=== PATIENT | female | born 1935 | race Caucasian/White ===

== ENCOUNTER 2019-05-15 07:26 | Inpatient (IN) ==
--- NOTE | 2019-04-13 19:45 | PAT Medication Instructions ---
Medication Instructions Date of Service April 13, 2019 Home Medications acetaminophen [Tylenol Extra Strength] 1,000 mg PO Q6H PRN lorazepam 0.5 mg PO UD PRN metoprolol tartrate 25 mg PO QAM mirtazapine 15 mg PO HS pantoprazole 40 mg PO QAM tramadol 50 mg PO UD PRN Take morning of surgery With a small sip of water, OTHERWISE NOTHING TO EAT OR DRINK AFTER MIDNIGHT: acetaminophen [Tylenol Extra Strength] 1,000 mg PO Q6H PRN (okay to take up to 4 hours prior to surgery if needed) lorazepam 0.5 mg PO UD PRN (if needed) metoprolol tartrate 25 mg PO QAM pantoprazole 40 mg PO QAM tramadol 50 mg PO UD PRN (okay to take up to 4 hours prior to surgery if needed) Take evening before surgery acetaminophen [Tylenol Extra Strength] 1,000 mg PO Q6H PRN (if needed) lorazepam 0.5 mg PO UD PRN (if needed) mirtazapine 15 mg PO HS tramadol 50 mg PO UD PRN (if needed) Other Notes If you have any questions please call us at [phone] or [phone] or [phone] or [phone]
--- NOTE | 2019-04-14 13:57 | Anesthesiology Consultation ---
Date of Service April 14, 2019 Assessment & Plan (1) Encounter for pre-operative examination: Chart Review Chart Review: Pending: Refer to Additional Notes / Consult section (pending preop testing (labs, EKG, CXR)) and Patient seen in Pre Admission Testing Teaching & Discussion Pre-Anesthesia Teaching/Discussion Notes: Instructed NPO after midnight before surgery,except medications with 15 cc of water. Medication instructions provide d according to the PAT guidelines. History Surgery Operation Date: 05/15/19 10:05 Proposed Procedures p Right Total Knee Arthroplasty - Feliciano Pascual MD Height/Weight Height: 5 ft 6 in Weight: 55.6 kg Allergies Allergy/AdvReac Type Severity Reaction Status Date / Time blue dye Allergy Unknown SKIN BURN Verified 04/07/19 11:26 duloxetine Allergy Unknown SKIN BURN Verified 04/07/19 11:26 escitalopram Allergy Unknown SKIN BURN Verified 04/07/19 11:26 omeprazole Allergy Unknown SKIN JORDAN Verified 04/07/19 11:26 citalopram AdvReac Unknown Headache Verified 04/07/19 11:26 Penicillins AdvReac Unknown DRY MOUTH Verified 04/07/19 11:26 tramadol AdvReac Unknown HEADACHE Verified 04/07/19 11:26 LYCAMADOL Allergy Unknown SKIN JORDAN Uncoded 04/07/19 11:26 Medications Home Medications Medication Instructions Recorded Confirmed Last Taken acetaminophen [Tylenol Extra 1,000 mg PO Q6H PRN 04/07/19 04/07/19 Unknown Strength] lorazepam 0.5 mg PO UD PRN 04/07/19 04/07/19 Unknown metoprolol tartrate 25 mg PO QAM 04/07/19 04/07/19 Unknown mirtazapine 15 mg PO HS 04/07/19 04/07/19 Unknown pantoprazole 40 mg PO QAM 04/07/19 04/07/19 Unknown tramadol 50 mg PO UD PRN 04/07/19 04/07/19 Unknown polyethylene glycol 3350 1 dose PO BID 04/14/19 04/14/19 Unknown Past Medical History Medical History Anxiety and depression Arthritis History of cancer colon s/p partial colon resection; no chemo/XRT Hypertension Restless leg syndrome Exercise / Class Metabolic Activity II 4-5 Yardwork/Stairs/Walk up hill Past Family History Family History Mother Family history of diabetes mellitus Sister Family history of colon cancer Family history of diabetes mellitus Brother Family history of diabetes mellitus Brother Family history of diabetes mellitus Other Patient's mother is Patient's sister is Past Surgical History Surgical History History of cardiac cath SEVERAL YEARS AGO= NO STENTS History of colonoscopy History of hysterectomy History of intestinal surgery partial bowel resection (2/2 cancer) Past Anesthesia History No Hx of Anesthesia Complications and No Family Hx of Anesthesia Complications History of PONV No Hx of PONV and No Hx of Motion Sickness Social History Smoking Status: Former smoker Do You Dip or Chew Tobacco: No Smoking End Date: QUIT 11+ YEARS AGO Hx Alcohol Use: No Hx Substance Use: No substance use type: does not use Review of Systems Occasional palpitations. Patient denies chest pain, shortness of breath, dyspnea on exertion, reflux, cough, wheezing. Physical Exam Vital Signs VITALS BP 144/70 P 66 TEMP 98.1 SP02 95%RA RESP 18 PHYSICAL Full neck and c-spine range of motion. Full TMJ range of motion. TMD 3.5 finger breaths Mallampati Score 2 Dentition: full dentures upper/lower; edentulous Lungs: clear throughout to auscultation Cardiac: regular rate and rhythm, no murmurs noted Spine: normal Carotid arteries: negative bruit Extremities: no edema
--- NOTE | 2019-04-14 14:58 | XRay Report ---
XR chest Pre-admission PA/Lat HISTORY: 83 years-old Female PAT preoperative exam. No acute chest complaints COMPARISON: Chest radiograph 05/09/2016 TECHNIQUE: PA and lateral views of the chest FINDINGS: Cardiomediastinal and hilar silhouettes are within normal limits. Mild biapical pleural-parenchymal s carring appears unchanged. Hyperinflation with suggested emphysema. Mild chronic interstitial coarsen ing. Chronic blunting of the costophrenic angles. No pneumothorax, definite pleural effusion or overt pulmonary edema. Previously described hazy right upper lung and left lung opacities are not apprecia abdulaziz on today's study. Degenerative changes of the shoulders and spine. Convex right curvature of the lower thoracic spine. IMPRESSION: No acute process. The above report was generated using voice recognition software. It may contain grammatical, syntax o r spelling errors. Electronically signed by: Alex Bullock M.D. 04/14/2019 2:56 PM
[2019-04-14 15:12] LABS: Appearance Urine Clear (Clear); Bilirubin Urine Negative (Negative); Blood Urine Negative (Negative); Color Urine Yellow; Estimated Average Glucose 111 mg/dl; Glucose Urine UA Negative (Negative); Hemoglobin A1C 5.5 % (4.5-5.6); Ketones Urine Negative (Negative); Leukocyte Esterase Urine Negative (Negative); Nitrite Urine Negative (Negative); Protein Urine Negative (Negative); Specific Gravity Urine 1.023 (1.000-1.030); Urobilinogen Urine Negative (Negative)
[2019-04-14 15:14] LABS: Basophils # (auto) 0.02 K/uL (0-0.2); Basophils % (auto) 0.5 %; Eosinophils # (auto) 0.12 K/uL (0-0.5); Eosinophils % (auto) 3.2 %; Hematocrit (blood only) 37.2 % (37-47); Immature Granulocytes # (auto) 0.01 K/uL (0.00-0.02); Immature Granulocytes % (auto) 0.3 %; Lymphocytes % (auto) 32.1 %; Mean Corpuscular Hemoglobin 28.9 pg (25-34); Mean Corpuscular Hgb Conc 32.3 g/dL (32-36); Mean Corpuscular Volume 89.6 fL (80-100); Mean Platelet Volume 11.4 fL (7.4-10.4); Monocytes # (auto) 0.27 K/uL (0.11-0.59); Monocytes % (auto) 7.2 %; Neutrophils # (auto) 2.12 K/uL (1.4-6.5); Neutrophils % (auto) 56.7 %; Platelet Count 130 K/uL (130-400); RDW Coefficient of Variation 14.4 % (11.5-14.5); RDW Standard Deviation 47.8 fL (36.4-46.3); Red Blood Count 4.15 M/uL (4.2-5.4); White Blood Count 3.74 K/uL (4.8-10.8)
[2019-04-14 15:17] LABS: Partial Thromboplastin Time 25.8 Seconds (21.0-31.0); Prothrombin Time 10.2 Seconds (9.0-12.0)
[2019-04-14 15:57] LABS: Giant Platelets 1+
[2019-04-14 16:09] LABS: Albumin Level 3.2 gm/dl (3.4-5.0); BUN Creatinine Ratio 29.4 (10-20); Calcium 8.4 mg/dl (8.5-10.1); Creatinine Clr Calc Pharmacy 65.6 ml/min; Est GFR (African American) 99.6; Potassium 3.6 mmol/L (3.5-5.1)
--- NOTE | 2019-05-02 12:45 | History & Physical Report ---
Date of Service May 02, 2019 Assessment & Plan (1) Primary osteoarthritis of right knee: Patient has failed conservative measures as above. She has significant degenerative changes of her knee. Treatment options were discussed. Risks, benefits and alternatives to surgery including but not limited to infection, DVT, pain, stiffness, need for revision surgery, damage to blood vessels, damage to nerves, PE, , were discussed with the patient and they wish to proceed. Plan will be for right total knee arthroplasty. Will plan on utilizing stems due to her poor bone quality on x-ray. Will plan on aspirin 81mg BID x 30 days post operatively for DVT prophylaxis, she plans on inpatient rehab for a period post discharge from hospital. All questions answered. Surgery scheduled for 05/15/19 at [facility]. She will follow up post operatively. History of Present Illness Chief Complaint: Right knee pain Primary Care Provider: Vero Hayes MD 83 year old female with PMHx significant for HTN, history of colon Ca, anxiety/depression, and RLS who presents with ongoing right knee pain. She has tried and failed multiple conservative therapies including cortisone and visco injections, NSAIDs, therapy with little to no relief of her symptoms. Her pain is affecting her daily activities. She would like to proceed with right knee replacement. Patient denies headaches, sweats, fevers, chills, double vision, blurred vision, cough, sore throat, dysphagia, chest pain, sob, wheezing, n/v/d/c, numbness, tingling, fatigue, urinary symptoms, mood disorders. ROS positive for Right knee pain and stiffness. Allergies Allergy/AdvReac Type Severity Reaction Status Date / Time blue dye Allergy Unknown SKIN BURN Verified 04/07/19 11:26 duloxetine Allergy Unknown SKIN BURN Verified 04/07/19 11:26 escitalopram Allergy Unknown SKIN BURN Verified 04/07/19 11:26 omeprazole Allergy Unknown SKIN JORDAN Verified 04/07/19 11:26 citalopram AdvReac Unknown Headache Verified 04/07/19 11:26 Penicillins AdvReac Unknown DRY MOUTH Verified 04/07/19 11:26 tramadol AdvReac Unknown HEADACHE Verified 04/07/19 11:26 LYCAMADOL Allergy Unknown SKIN JORDAN Uncoded 04/07/19 11:26 Home Medications Home Medications Medication Instructions Recorded Confirmed Type acetaminophen [Tylenol Extra 1,000 mg PO Q6H PRN 04/07/19 04/07/19 History Strength] lorazepam 0.5 mg PO UD PRN 04/07/19 04/07/19 History metoprolol tartrate 25 mg PO QAM 04/07/19 04/07/19 History mirtazapine 15 mg PO HS 04/07/19 04/07/19 History pantoprazole 40 mg PO QAM 04/07/19 04/07/19 History tramadol 50 mg PO UD PRN 04/07/19 04/07/19 History polyethylene glycol 3350 1 dose PO BID 04/14/19 04/14/19 History Past Med/Surg History Medical History Anxiety and depression Arthritis History of cancer colon s/p partial colon resection; no chemo/XRT Hypertension Restless leg syndrome Surgical History History of cardiac cath SEVERAL YEARS AGO= NO STENTS History of colonoscopy History of hysterectomy History of intestinal surgery partial bowel resection (2/2 cancer) Family History Mother Family history of diabetes mellitus Sister Family history of colon cancer Family history of diabetes mellitus Brother Family history of diabetes mellitus Brother Family history of diabetes mellitus Other Patient's mother is Patient's sister is Social History Preferred Language: Venezuelan Communication Ability: Effective Burial Needs Salesperson Required: No Beliefs That Will Affect Care: None Current Living Situation: Other Current Living Situation Comment: SON Other Information That Helps Us Care for You: No Feels Safe at Home: Yes Smoking Status: Former smoker Do You Dip or Chew Tobacco: No ; Smoking End Date: QUIT 11+ YEARS AGO ; Hx Alcohol Use: No Hx Substance Use: No Review of Systems All systems reviewed & are unremarkable except as noted in HPI & below Physical Exam Constitutional: well developed and well nourished; no acute distress Eyes: PERRL, conjunctivae normal, anicteric sclerae ENMT: external ear and nose normal, oropharynx normal Neck: trachea midline, no thyromegaly Respiratory: normal respiratory effort, lungs clear to auscultation Cardiovascular: RRR, no murmur, no edema Musculoskeletal: Right knee-Mild to moderate effusion, diffuse tenderness. ROM 10-110 with severe crepitation, positive Kaylie's stable to valgus and varus stress test Skin: no rashes, warm and dry Neurologic: patellar DTR's 2+ bilat, sensation intact Psychiatric: A+Ox3, euthymic affect Results & Data Laboratory Results Lab Results 04/14/19 04/14/19 04/14/19 Range/Units 14:24 14:24 14:24 WBC 3.74 L (4.8-10.8) K/uL RBC 4.15 L (4.2-5.4) M/uL Hgb 12.0 (12.0-16.0) g/dL Hct 37.2 (37-47) % MCV 89.6 (80-100) fL MCH 28.9 (25-34) pg MCHC 32.3 (32-36) g/dL RDW Std Deviation 47.8 H (36.4-46.3) fL RDW Coeff of Wilfredo 14.4 (11.5-14.5) % Plt Count 130 (130-400) K/uL MPV 11.4 H (7.4-10.4) fL Immature Gran % (Auto) 0.3 % Neut % (Auto) 56.7 % Lymph % (Auto) 32.1 % Leake % (Auto) 7.2 % Eos % (Auto) 3.2 % Baso % (Auto) 0.5 % Immature Gran # (Auto) 0.01 (0.00-0.02) K/uL Neut # (Auto) 2.12 (1.4-6.5) K/uL Lymph # (Auto) 1.20 (1.2-3.4) K/uL Leake # (Auto) 0.27 (0.11-0.59) K/uL Eos # (Auto) 0.12 (0-0.5) K/uL Baso # (Auto) 0.02 (0-0.2) K/uL Giant Platelets 1+ PT 10.2 (9.0-12.0) Seconds INR 1.0 (0.9-1.1) APTT 25.8 (21.0-31.0) Seconds PTT Ratio 1.0 Sodium 142 (136-145) mmol/L Potassium 3.6 (3.5-5.1) mmol/L Chloride 106 (98-107) mmol/L Carbon Dioxide 28 (21-32) mmol/L Anion Gap 8.0 (3-11) BUN 17 (7-18) mg/dl Creatinine 0.59 L (0.6-1.2) mg/dl Est Cr Clr Drug Dosing 65.6 ml/min Est GFR ( Amer) 99.6 Est GFR (Non-Af Amer) 86.0 BUN/Creatinine Ratio 29.4 H (10-20) Glucose 120 H (70-99) mg/dl Estimat Average Glucose mg/dl Hemoglobin A1c (4.5-5.6) % Calcium 8.4 L (8.5-10.1) mg/dl Albumin 3.2 L (3.4-5.0) gm/dl Urine Color Urine Appearance (Clear) Urine pH (4.5-7.5) Ur Specific Benicia (1.000-1.030) Urine Protein (Negative) Urine Glucose (UA) (Negative) Urine Ketones (Negative) Urine Blood (Negative) Urine Nitrite (Negative) Urine Bilirubin (Negative) Urine Urobilinogen (Negative) Ur Leukocyte Esterase (Negative) Blood Type Antibody Screen 04/14/19 04/14/19 04/14/19 Range/Units 14:24 14:24 14:24 WBC (4.8-10.8) K/uL RBC (4.2-5.4) M/uL Hgb (12.0-16.0) g/dL Hct (37-47) % MCV (80-100) fL MCH (25-34) pg MCHC (32-36) g/dL RDW Std Deviation (36.4-46.3) fL RDW Coeff of Wilfredo (11.5-14.5) % Plt Count (130-400) K/uL MPV (7.4-10.4) fL Immature Gran % (Auto) % Neut % (Auto) % Lymph % (Auto) % Leake % (Auto) % Eos % (Auto) % Baso % (Auto) % Immature Gran # (Auto) (0.00-0.02) K/uL Neut # (Auto) (1.4-6.5) K/uL Lymph # (Auto) (1.2-3.4) K/uL Leake # (Auto) (0.11-0.59) K/uL Eos # (Auto) (0-0.5) K/uL Baso # (Auto) (0-0.2) K/uL Giant Platelets PT (9.0-12.0) Seconds INR (0.9-1.1) APTT (21.0-31.0) Seconds PTT Ratio Sodium (136-145) mmol/L Potassium (3.5-5.1) mmol/L Chloride (98-107) mmol/L Carbon Dioxide (21-32) mmol/L Anion Gap (3-11) BUN (7-18) mg/dl Creatinine (0.6-1.2) mg/dl Est Cr Clr Drug Dosing ml/min Est GFR ( Amer) Est GFR (Non-Af Amer) BUN/Creatinine Ratio (10-20) Glucose (70-99) mg/dl Estimat Average Glucose 111 mg/dl Hemoglobin A1c 5.5 (4.5-5.6) % Calcium (8.5-10.1) mg/dl Albumin (3.4-5.0) gm/dl Urine Color Yellow Urine Appearance Clear (Clear) Urine pH 5.0 (4.5-7.5) Ur Specific Benicia 1.023 (1.000-1.030) Urine Protein Negative (Negative) Urine Glucose (UA) Negative (Negative) Urine Ketones Negative (Negative) Urine Blood Negative (Negative) Urine Nitrite Negative (Negative) Urine Bilirubin Negative (Negative) Urine Urobilinogen Negative (Negative) Ur Leukocyte Esterase Negative (Negative) Blood Type O Positive Antibody Screen NEGATIVE Diagnostic Findings Right knee radiographs: Osteopenia. Mild degenerative changes medial and lateral compartment with osteophyte formation. She is rbng-my-toeo patellofemoral joint with spurring.
[~2019-05-15 07:26] MED LIST: ACETAMINOPHEN 500 MG TAB PO SCH; BUPIVACAINE 0.5 % 5 MG/1 ML PF 10ML VIAL ONE; CEFAZOLIN 1000MG 1,000 MG/7.5 ML SYR IV SCH; CeleBREX 200 MG CAP PO SCH; GABAPENTIN 300 MG CAP PO SCH; LR 500ML BOLUS, THEN 15ML/HR IV SCH; ROPIVACAINE 0.5% HCL/PF 150 MG, BUPIVACAINE 0.5% MPF 30 ML, EPINEPHrine 30MG/30ML (OR U... INFIL SCH; TRANEXAMIC ACID 1,000 MG **IV Intra-op IV SCH; TRANEXAMIC ACID 1,000 MG **IV Pre-op IV SCH; dexAMETHasone 4 MG TAB PO SCH
--- NOTE | 2019-05-15 07:49 | History & Physical Bridge Note ---
Date of Service May 15, 2019 History & Physical Bridge Note I have examined the patient, reviewed the History & Physical and in the interval since the performance of the History & Physical I have noted the following changes of clinical significance: no changes noted
[2019-05-15] MEDS ORDERED: ORTHO JOINT ANESTHETIC ONE (07:58)
[2019-05-15] MEDS ORDERED: BACITRACIN INJ 50,000 UNIT VIAL ONE (07:58)
[2019-05-15] MEDS ORDERED: MISSING PHYSICIAN SIGNATURE ON ORDER SCH (08:00)
[2019-05-15] MEDS ORDERED: MIDAZOLAM HCL 1 MG/ML 2ML VIAL ONE (08:06)
[2019-05-15] MEDS ORDERED: ONDANSETRON INJ 2 MG/ML 2 ML VIAL ONE (08:06)
[2019-05-15] MEDS ORDERED: PROPOFOL IV EMULSION 10 MG/ML 20 ML VIAL IV ONE ×2 (08:06→10:55)
[2019-05-15] MEDS ORDERED: fentaNYL citrate 100 MCG/2 ML VIAL ONE (08:06)
[2019-05-15] MEDS ORDERED: LIDOCAINE HCL 2% 2 ML VIAL/AMP(20MG/ML) INFIL ONE (08:06)
[2019-05-15] MEDS ORDERED: METOCLOPRAMIDE HCL 10 MG TABLET ONE (08:42)
[2019-05-15] MEDS ORDERED: fentaNYL citrate 100 MCG/2 ML VIAL IV PRN (08:43)
[2019-05-15] MEDS ORDERED: ATROPINE SULFATE 0.1 MG/ML 10ML SYR IV PRN (08:43)
[2019-05-15] MEDS ORDERED: ePHEDrine sulfate 50 MG/ML AMP IV PRN (08:43)
[2019-05-15] MEDS ORDERED: ONDANSETRON INJ 2 MG/ML 2 ML VIAL IV PRN ×2 (08:43→12:35)
--- NOTE | 2019-05-15 11:10 | Operative Report ---
Post Operative Report Pre & Post Diagnosis Operation Date: 05/15/19 09:35 Pre-Op Diagnosis: Unilateral Primary Osteoarthritis, Right Knee and osteoporosis Post-Op Diagnosis: Unilateral Primary Osteoarthritis, Right Knee and osteoporosis I identified the patient and participated in the time-out.: Yes Procedure Operation Date: 05/15/19 09:35 Actual Procedures p Right Total Knee Arthroplasty(Right) - Feliciano Pascual MD Surgeon Feliciano Pascual MD R&D Lab Technician Julio Martinez PA-C Estimated Blood Loss 20 Findings Consistent with Post-Op Diagnosis Specimens Bone and tissue Drains 2 Hemovac Anesthesia Type MAC Spinal Regional Complications none Disposition Accompanied Patient To Recovery: No Disposition: Recovery Room Indications The patient is an 83-year-old female long-standing arthritic change in ptns-kg-[id number] patellofemoral joint with arthritic change in the medial as well as lateral compartments. She has failed conservative measures, injection, anti- inflammatories and rehab. She wishes to proceed with a total knee arthroplasty. Description of Procedure Risks benefits and alternatives of surgery including but not limited to infection, DVT, pain, stiffness, need for surgery, damage to blood vessels, damage to nerves or risks of anesthesia were discussed with the patient and they wished to proceed. The patient was identified and the laterality was confirmed and marked. They received a preoperative antibiotic as well as a spinal anesthetic and an abductor canal block. A well-padded tourniquet was applied and then the limb was prepped and draped in standard manner with ChloraPrep. The limb was exsanguinated and the tourniquet was inflated. I made a standard anterior incision. I sharply incised the skin then utilized Bovie electrocautery to achieve hemostasis. I made a medial parapatellar arthrotomy and mobilized the patella laterally. I then excised the anterior horns of the medial and lateral meniscus as well as the infrapatellar fat pad. I elevated a portion of the MCL off of the tibia. I then pinned into place a patient-matched distal femoral cutting guide and made my distal femoral resection. She has significant osteoporosis noted on her preoperative imaging. Therefore elected to use revision style stemmed implants to give better support due to her thin thin bone. I then pinned into place my tibial cutting guide made my tibial resection. I then sequentially reamed up to a size 16. I then placed the tibial recut guide on to take an additional 2 mm of bone necessary for the Legion revision style implant. I then checked for the offset and elected to use a 6 mm offset. This was then reamed for the boss this is all as reamed for the offset. I then placed my femoral cutting guide into position. I made my anterior, posterior and chamfer cuts. I then excised the cruciates and the remaining portions of the menisci. I then checked the offset for the femur with a rafi in position. It was a 2 mm offset. I then reamed for the boss and then reamed for the offset. I then cut for the post. Utilizing a lamina cotton acreage measurer and I then removed posterior osteophytes off the femur. I then placed a trial femur into position and cut for the trochlear component. I then placed the tibial trial back into position. I then sequentially trialed to size the polyethylene until there was good soft tissue balancing and range of motion. I then prepared the patella with a freehand cut utilizing sagittal saw. I sized and drilled for the patella. There was good tracking to the patella no lateral release was needed. All the trial components were removed. The deep tissues were anesthetized with an ortho mix solution. Then with Simplex HV with gentamicin cement, I cemented my definitive components. Definitive components, [employer] Legion: Femur 5 with 2 mm offset with 16 x 120 mm stem at 6 o'clock position Tibia 4 with 6 mm offset with 16 x 120 mm stem at the 9:30 position Poly 9 Patella 29 oval A betadine soak was performed. A deep drain was placed. The arthrotomy was closed with interrupted #1 Vicryl suture subcutaneous tissue was closed with interrupted 2-0 Vicryl suture. The skin was closed with with remy. An Acticoat and Kaur dressing were placed. Sterile dressings were applied. All needle and sponge counts were correct at the end of the procedure patient was transferred to the PACU in stable condition without apparent complication. The PA-C was necessary for assistance with procedure for assistance in posi tioning, prepping, draping, retraction and closure. I attest to the content of the Intraoperative Record and any orders documented therein. Any exceptions are noted below.
--- NOTE | 2019-05-15 12:33 | Anesthesiology Progress Note ---
Date of Service May 15, 2019 Anesthesia Post Procedure Vital Signs Vital Signs: Temp Pulse Pulse Resp BP Pulse Ox 05/15/19 12:10 98.4 F 59 L 16 138/70 99 05/15/19 12:00 98.4 F 58 L 16 157/69 H 98 05/15/19 11:50 61 16 140/67 98 05/15/19 11:41 99.1 F 62 16 143/75 H 98 05/15/19 08:21 98.2 F 63 20 171/80 H 98 Transfer of Care Handoff Completed per policy Notes Mental Status: alert / awake / arousable and participated in evaluation Patient Amnestic to Procedure: Yes Nausea / Vomiting: adequately controlled Pain: adequately controlled Airway Patency, RR, SpO2: stable & adequate BP & HR: stable & adequate Hydration State: stable & adequate Neuraxial Anesthesia: was administered and sensory block is resolving Anesthetic Complications: no major complications apparent and Pt Satisfied with anesthetic care
[2019-05-15] MEDS ORDERED: HYDROmorphone INJ 0.5 MG/0.5 ML SYR IV PRN (12:35)
[2019-05-15] MEDS ORDERED: MAGNESIUM HYDROXIDE SUSP 30 ML UDC PO PRN (12:35)
[2019-05-15] MEDS ORDERED: NALOXONE HCL 0.4 MG/1 ML VIAL/CARP IV PRN (12:35)
[2019-05-15] MEDS ORDERED: METOCLOPRAMIDE HCL INJ 5 MG/ML 2 ML VIAL IV PRN (12:35)
[2019-05-15] MEDS ORDERED: LORazepam 1 MG TAB PO PRN (12:35)
[2019-05-15] MEDS ORDERED: BISACODYL 10 MG SUPP PR PRN (12:35)
[2019-05-15] MEDS ORDERED: SODIUM CHLORIDE 0.9% 1000ML 1,000 ML IV SCH (13:00)
--- NOTE | 2019-05-15 13:00 | XRay Report ---
XR knee RT 1 or 2V routine CLINICAL HISTORY: Surgical Post Op COMPARISON: None. DISCUSSION: Anatomic alignment post longstem total knee arthroplasty. Could contact between prostheti c and underlying bone. Expected soft tissue postoperative change. IMPRESSION: Anatomic alignment posttotal right knee arthroplasty The above report was generated using voice recognition software. It may contain grammatical, syntax or spelling errors. Electronically signed by: Vance Mtz M.D. 05/15/2019 12:58 PM
[2019-05-15] MEDS: ACETAMINOPHEN 500 MG TAB PO SCH ×2 (14:00→21:45)
[2019-05-15] MEDS: CEFAZOLIN 1000MG 1,000 MG/7.5 ML SYR IV SCH (18:17)
[2019-05-15] MEDS: OXYCODONE HCL IR 5 MG TAB (IMMEDIATE RELEASE) PO PRN (18:27)
[2019-05-15] MEDS: SENNA 8.6 MG TAB PO SCH (21:45)
[2019-05-15] MEDS: CeleBREX 200 MG CAP PO SCH (21:45)
[2019-05-15] MEDS: ASPIRIN 81 MG ECTAB PO SCH (21:45)
[2019-05-15] MEDS: DOCUSATE SODIUM 100 MG CAP PO SCH (21:45)
[2019-05-15] MEDS: POLYETHYLENE (MIRALAX) 17 GM PACK PO SCH (21:45)
[2019-05-16] MEDS: CEFAZOLIN 1000MG 1,000 MG/7.5 ML SYR IV SCH (02:45)
[2019-05-16] MEDS: OXYCODONE HCL IR 5 MG TAB (IMMEDIATE RELEASE) PO PRN ×4 (02:52→15:45)
[2019-05-16] MEDS: ACETAMINOPHEN 500 MG TAB PO SCH ×3 (05:25→21:02)
[2019-05-16 05:51] LABS: Hematocrit (blood only) 31.4 % (37-47); Hemoglobin 10.3 g/dL (12.0-16.0); Mean Corpuscular Hemoglobin 28.9 pg (25-34); Mean Corpuscular Hgb Conc 32.8 g/dL (32-36); Mean Corpuscular Volume 88.2 fL (80-100); Mean Platelet Volume 11.1 fL (7.4-10.4); Platelet Count 100 K/uL (130-400); RDW Coefficient of Variation 13.8 % (11.5-14.5); RDW Standard Deviation 44.7 fL (36.4-46.3); Red Blood Count 3.56 M/uL (4.2-5.4); White Blood Count 8.84 K/uL (4.8-10.8)
[2019-05-16 06:20] LABS: BUN Creatinine Ratio 30.1 (10-20); Calcium 8.6 mg/dl (8.5-10.1); Creatinine Clr Calc Pharmacy 65.7 ml/min; Est GFR (African American) 100.8; Est GFR (Non-African American) 86.9; Potassium 3.9 mmol/L (3.5-5.1)
--- NOTE | 2019-05-16 07:09 | Orthopedic Progress Note ---
Date of Service May 16, 2019 Assessment & Plan (1) S/P knee replacement: POD#1 Right TKA -Pain management -DVT prophylaxis-SCDs, Teds, ASA 81mg BID -PT/OT D/C planning-discharge to [facility] when stable AM labs-hemoglobin at 10.3 this AM. Subjective POD#1 Right TKA. Doing well, pain well controlled. No complaints of chest pain, sob, dizziness, headache, n/v/d. Review of Systems Review of Systems: All systems reviewed & are unremarkable except as noted in HPI & below Physical Exam Physical Exam: Right knee-Dressing is c/d/i, Kaur and hemovac in place. No calf tenderness. Toes mobile, good DF. Sensation and n/v status intact Results & Data Vital Signs (Past 12 Hours) Vital Signs Temp Pulse Resp BP BP Pulse Ox 05/16/19 04:25 37.0 C 72 14 103/54 L 96 05/16/19 00:15 36.5 C 70 16 128/71 97 (1) S/P knee replacement Laterality: right Qualified Code(s): Z96.651 - Presence of right artificial knee joint
[2019-05-16] MEDS: METOPROLOL TARTRATE 25 MG TAB PO SCH (08:46)
[2019-05-16] MEDS: CeleBREX 200 MG CAP PO SCH ×2 (08:46→20:49)
[2019-05-16] MEDS: CHOLECALCIFEROL 1,000 UNITS TAB PO SCH (08:46)
[2019-05-16] MEDS: CALCIUM 600MG + VIT D 400 IU TAB PO SCH (08:47)
[2019-05-16] MEDS: PANTOprazole 40 MG TAB PO SCH (08:47)
[2019-05-16] MEDS: MULTIVITAMIN TAB PO SCH (08:47)
[2019-05-16] MEDS: ASPIRIN 81 MG ECTAB PO SCH ×2 (08:47→20:49)
[2019-05-16] MEDS: DOCUSATE SODIUM 100 MG CAP PO SCH ×2 (08:48→20:49)
[2019-05-16] MEDS: POLYETHYLENE (MIRALAX) 17 GM PACK PO SCH ×2 (08:48→20:49)
[2019-05-16] MEDS: SENNA 8.6 MG TAB PO SCH (20:49)
[2019-05-17] MEDS: ACETAMINOPHEN 500 MG TAB PO SCH (06:30)
[2019-05-17] MEDS: DOCUSATE SODIUM 100 MG CAP PO SCH (07:32)
[2019-05-17] MEDS: METOPROLOL TARTRATE 25 MG TAB PO SCH (07:34)
[2019-05-17] MEDS: CALCIUM 600MG + VIT D 400 IU TAB PO SCH (07:34)
[2019-05-17] MEDS: CHOLECALCIFEROL 1,000 UNITS TAB PO SCH (07:34)
[2019-05-17] MEDS: POLYETHYLENE (MIRALAX) 17 GM PACK PO SCH (07:34)
[2019-05-17] MEDS: ASPIRIN 81 MG ECTAB PO SCH (07:35)
[2019-05-17] MEDS: CeleBREX 200 MG CAP PO SCH (07:35)
[2019-05-17] MEDS: MULTIVITAMIN TAB PO SCH (07:35)
[2019-05-17] MEDS: PANTOprazole 40 MG TAB PO SCH (07:35)
[2019-05-17] MEDS: OXYCODONE HCL IR 5 MG TAB (IMMEDIATE RELEASE) PO PRN ×2 (07:39→12:40)
--- NOTE | 2019-05-17 07:50 | Orthopedic Progress Note ---
Date of Service May 17, 2019 Assessment & Plan (1) S/P knee replacement: POD#2 Right TKA -Pain management -DVT prophylaxis-SCDs, Teds, ASA 81mg BID -PT/OT D/C planning-discharge to [facility] when stable. Likely later today as long as [facility] can take her and she has transportation. Subjective POD#2 Right TKA. Doing well, pain well controlled. Is having increased pain today compared to yesterday. No complaints of chest pain, sob, dizziness, headache, n/v/d. Review of Systems Review of Systems: All systems reviewed & are unremarkable except as noted in HPI & below Physical Exam Physical Exam: Right knee-Kaur is intact and functioning. Dressing to drain site is c/d/i. No calf tenderness. Toes mobile, good dorsiflexion. Distally n/v status and sensation intact. Constitutional: well developed and well nourished; no acute distress Results & Data Vital Signs (Past 12 Hours) Vital Signs Temp Pulse Resp BP BP Pulse Ox 05/17/19 06:55 36.6 C 78 16 129/60 98 05/16/19 23:45 36.8 C 75 16 120/54 L 97 (1) S/P knee replacement Laterality: right Qualified Code(s): Z96.651 - Presence of right artificial knee joint
--- NOTE | 2019-05-18 13:05 | Discharge Summary ---
Date of Service May 18, 2019 Admission HPI Per Admitting Provider 83 year old female with PMHx significant for HTN, history of colon Ca, anxiety/depression, and RLS who presents with ongoing right knee pain. She has tried and failed multiple conservative therapies including cortisone and visco injections, NSAIDs, therapy with little to no relief of her symptoms. Her pain is affecting her daily activities. She would like to proceed with right knee replacement. Patient denies headaches, sweats, fevers, chills, double vision, blurred vision, cough, sore throat, dysphagia, chest pain, sob, wheezing, n/v/d/c, numbness, tingling, fatigue, urinary symptoms, mood disorders. ROS pos itive for Right knee pain and stiffness. Admission Exam Per Admitting Provider Constitutional: well developed and well nourished; no acute distress Eyes: PERRL, conjunctivae normal, anicteric sclerae ENMT: external ear and nose normal, oropharynx normal Neck: trachea midline, no thyromegaly Respiratory: normal respiratory effort, lungs clear to auscultation Cardiovascular: RRR, no murmur, no edema Musculoskeletal: Right knee-Mild to moderate effusion, diffuse tenderness. ROM 10-110 with severe crepitation, positive Kaylie's stable to valgus and varus stress test Skin: no rashes, warm and dry Neurologic: patellar DTR's 2+ bilat, sensation intact Psychiatric: A+Ox3, euthymic affect Principal Diagnosis Right knee osteoarthritis Discharge Exam Constitutional well developed and well nourished; no acute distress Eyes PERRL, conjunctivae normal, anicteric sclerae ENMT external ear and nose normal, oropharynx normal Neck trachea midline, no thyromegaly Respiratory normal respiratory effort, lungs clear to auscultation Cardiovascular RRR, no murmur, no edema Skin no rashes, warm and dry Neurologic patellar DTR's 2+ bilat, sensation intact Psychiatric A+Ox3, euthymic affect Discharge Data Allergies Allergy/AdvReac Type Severity Reaction Status Date / Time blue dye Allergy Unknown SKIN BURN Verified 05/15/19 08:46 duloxetine Allergy Unknown SKIN BURN Verified 05/15/19 08:46 escitalopram Allergy Unknown SKIN BURN Verified 05/15/19 08:46 omeprazole Allergy Unknown SKIN JORDAN Verified 05/15/19 08:46 citalopram AdvReac Unknown Headache Verified 05/15/19 08:46 Penicillins AdvReac Unknown DRY MOUTH Verified 05/15/19 08:46 clotrimazole AdvReac Verified 05/15/19 08:56 Consultations 05/15/19 12:35 Consult Case Management - Discharge Planning Routine Procedures Performed Operation Date: 05/15/19 09:35 Actual Procedures p Right Total Knee Arthroplasty(Right) - Feliciano Pascual MD Ordered Studies 05/15/19 05:00 US - OR guided needle placemen Routine Hospital Course (1) S/P knee replacement: Patient presented for same day admission following right total knee arthroplasty on 05/15/19. She tolerated procedure well. The Patient had an uneventful hospital course. Post-operatively, her activity was progressed and well tolerated. They participated in PT with ambulation distance of 150 and 175 feet. ROM of operative knee reached 91 degrees. Labs remained stable- lowest he moglobin recorded: 10.3. Pain controlled on oral medications. Please refer to daily progress notes and PT notes for complete details. After exam on 05/17/19, patient was felt to be stable for discharge to [facility]. Patient will f/u in the office in about 2 weeks for further evaluation including x-rays and incision check, sooner if having any issues or concerns. Lab Results 04/14/19 04/14/19 04/14/19 Range/Units 14:24 14:24 14:24 WBC 3.74 L (4.8-10.8) K/uL RBC 4.15 L (4.2-5.4) M/uL Hgb 12.0 (12.0-16.0) g/dL Hct 37.2 (37-47) % MCV 89.6 (80-100) fL MCH 28.9 (25-34) pg MCHC 32.3 (32-36) g/dL RDW Std Deviation 47.8 H (36.4-46.3) fL RDW Coeff of Wilfredo 14.4 (11.5-14.5) % Plt Count 130 (130-400) K/uL MPV 11.4 H (7.4-10.4) fL Immature Gran % (Auto) 0.3 % Neut % (Auto) 56.7 % Lymph % (Auto) 32.1 % Norton % (Auto) 7.2 % Eos % (Auto) 3.2 % Baso % (Auto) 0.5 % Immature Gran # (Auto) 0.01 (0.00-0.02) K/uL Neut # (Auto) 2.12 (1.4-6.5) K/uL Lymph # (Auto) 1.20 (1.2-3.4) K/uL Norton # (Auto) 0.27 (0.11-0.59) K/uL Eos # (Auto) 0.12 (0-0.5) K/uL Baso # (Auto) 0.02 (0-0.2) K/uL Giant Platelets 1+ PT 10.2 (9.0-12.0) Seconds INR 1.0 (0.9-1.1) APTT 25.8 (21.0-31.0) Seconds PTT Ratio 1.0 Sodium 142 (136-145) mmol/L Potassium 3.6 (3.5-5.1) mmol/L Chloride 106 (98-107) mmol/L Carbon Dioxide 28 (21-32) mmol/L Anion Gap 8.0 (3-11) BUN 17 (7-18) mg/dl Creatinine 0.59 L (0.6-1.2) mg/dl Est Cr Clr Drug Dosing 65.6 ml/min Est GFR ( Amer) 99.6 Est GFR (Non-Af Amer) 86.0 BUN/Creatinine Ratio 29.4 H (10-20) Glucose 120 H (70-99) mg/dl Estimat Average Glucose mg/dl Hemoglobin A1c (4.5-5.6) % Calcium 8.4 L (8.5-10.1) mg/dl Albumin 3.2 L (3.4-5.0) gm/dl Urine Color Urine Appearance (Clear) Urine pH (4.5-7.5) Ur Specific Acampo (1.000-1.030) Urine Protein (Negative) Urine Glucose (UA) (Negative) Urine Ketones (Negative) Urine Blood (Negative) Urine Nitrite (Negative) Urine Bilirubin (Negative) Urine Urobilinogen (Negative) Ur Leukocyte Esterase (Negative) Blood Type Antibody Screen 04/14/19 04/14/19 04/14/19 Range/Units 14:24 14:24 14:24 WBC (4.8-10.8) K/uL RBC (4.2-5.4) M/uL Hgb (12.0-16.0) g/dL Hct (37-47) % MCV (80-100) fL MCH (25-34) pg MCHC (32-36) g/dL RDW Std Deviation (36.4-46.3) fL RDW Coeff of Wilfredo (11.5-14.5) % Plt Count (130-400) K/uL MPV (7.4-10.4) fL Immature Gran % (Auto) % Neut % (Auto) % Lymph % (Auto) % Norton % (Auto) % Eos % (Auto) % Baso % (Auto) % Immature Gran # (Auto) (0.00-0.02) K/uL Neut # (Auto) (1.4-6.5) K/uL Lymph # (Auto) (1.2-3.4) K/uL Norton # (Auto) (0.11-0.59) K/uL Eos # (Auto) (0-0.5) K/uL Baso # (Auto) (0-0.2) K/uL Giant Platelets PT (9.0-12.0) Seconds INR (0.9-1.1) APTT (21.0-31.0) Seconds PTT Ratio Sodium (136-145) mmol/L Potassium (3.5-5.1) mmol/L Chloride (98-107) mmol/L Carbon Dioxide (21-32) mmol/L Anion Gap (3-11) BUN (7-18) mg/dl Creatinine (0.6-1.2) mg/dl Est Cr Clr Drug Dosing ml/min Est GFR ( Amer) Est GFR (Non-Af Amer) BUN/Creatinine Ratio (10-20) Glucose (70-99) mg/dl Estimat Average Glucose 111 mg/dl Hemoglobin A1c 5.5 (4.5-5.6) % Calcium (8.5-10.1) mg/dl Albumin (3.4-5.0) gm/dl Urine Color Yellow Urine Appearance Clear (Clear) Urine pH 5.0 (4.5-7.5) Ur Specific [place] 1.023 (1.000-1.030) Urine Protein Negative (Negative) Urine Glucose (UA) Negative (Negative) Urine Ketones Negative (Negative) Urine Blood Negative (Negative) Urine Nitrite Negative (Negative) Urine Bilirubin Negative (Negative) Urine Urobilinogen Negative (Negative) Ur Leukocyte Esterase Negative (Negative) Blood Type O Positive Antibody Screen NEGATIVE 05/16/19 05/16/19 Range/Units 05:07 05:07 WBC 8.84 (4.8-10.8) K/uL RBC 3.56 L (4.2-5.4) M/uL Hgb 10.3 L (12.0-16.0) g/dL Hct 31.4 L (37-47) % MCV 88.2 (80-100) fL MCH 28.9 (25-34) pg MCHC 32.8 (32-36) g/dL RDW Std Deviation 44.7 (36.4-46.3) fL RDW Coeff of Wilfredo 13.8 (11.5-14.5) % Plt Count 100 L (130-400) K/uL MPV 11.1 H (7.4-10.4) fL Immature Gran % (Auto) % Neut % (Auto) % Lymph % (Auto) % Norton % (Auto) % Eos % (Auto) % Baso % (Auto) % Immature Gran # (Auto) (0.00-0.02) K/uL Neut # (Auto) (1.4-6.5) K/uL Lymph # (Auto) (1.2-3.4) K/uL Norton # (Auto) (0.11-0.59) K/uL Eos # (Auto) (0-0.5) K/uL Baso # (Auto) (0-0.2) K/uL Giant Platelets PT (9.0-12.0) Seconds INR (0.9-1.1) APTT (21.0-31.0) Seconds PTT Ratio Sodium 141 (136-145) mmol/L Potassium 3.9 (3.5-5.1) mmol/L Chloride 109 H (98-107) mmol/L Carbon Dioxide 27 (21-32) mmol/L Anion Gap 5.0 (3-11) BUN 17 (7-18) mg/dl Creatinine 0.57 L (0.6-1.2) mg/dl Est Cr Clr Drug Dosing 65.7 ml/min Est GFR ( Amer) 100.8 Est GFR (Non-Af Amer) 86.9 BUN/Creatinine Ratio 30.1 H (10-20) Glucose 112 H (70-99) mg/dl Estimat Average Glucose mg/dl Hemoglobin A1c (4.5-5.6) % Calcium 8.6 (8.5-10.1) mg/dl Albumin (3.4-5.0) gm/dl Urine Color Urine Appearance (Clear) Urine pH (4.5-7.5) Ur Specific [place] (1.000-1.030) Urine Protein (Negative) Urine Glucose (UA) (Negative) Urine Ketones (Negative) Urine Blood (Negative) Urine Nitrite (Negative) Urine Bilirubin (Negative) Urine Urobilinogen (Negative) Ur Leukocyte Esterase (Negative) Blood Type Antibody Screen Total Time Total Time Spent Total Time Spent (In Minutes): 20 Discharge Plan Discharge Items Patient Disposition: Transfer Half-Way Fac Reason For Visit: Unilateral Primary Osteoarthritis, Right Knee Discharge Diagnosis: Right knee osteoarthritis Activity: Per Instructions section Non-emergency contact: Surgeon Call non-emergency contact if: you have any medication questions, your pain is not controlled, your pain is concerning for you, you have a fever, your temperature is above 101, your wound has increased redness and your wound has increased drainage Follow-up/Referrals: Rommel Lyons MD [Primary Care Provider] - Diet: Regular Addtl Attending Provider Instructions: ACTIVITY RECOMMENDATIONS: SELF CARE INSTRUCTIONS AFTER TOTAL KNEE REPLACEMENT A. You may need to continue a physical therapy program after discharge from the hospital. There are several options available to you. Your doctor will assist you in selecting the best one for you. 1. An out-patient facility 2 to 3 times a week for therapy or home therapy. 2. Continue working on all exercises taught to you in the hospital. Your goals should be to increase bending of your knee to 90 degrees and beyond and to fully straighten your knee. B. You may progress at your own pace from walking with a walker or crutches to a cane; then to no assistive devices. C. Make walking a part of your daily routine. Be up as much as comfortable with rest periods throughout the day. Rest with leg elevation is very important. Use the ice wrap frequently for the first 3-4 weeks. D. There are no restrictions on activities. You may ride in a car, shop, participate in groundman and all social activities. E. Wear the long elastic stockings (NAYAN hose) 20 hours a day for 2 weeks after surgery. They can be removed several times a day for laundering and for a bath. F. You may shower, no tub baths until cleared by your doctor. SPECIAL CARE INSTRUCTIONS: VERY IMPORTANT TO READ AND REVIEW A. There are a few signs you need to watch for after you are home. Call [facility] if you notice any of the followin. Increased severe knee pain. Some pain is expected especially when you exercise. 2. Increased swelling in your leg or knee; pain or swelling of the calf muscle in either lower leg. 3. Any fluid drainage from the incision. 4. Shortness of breath or chest pain. B. Please call [facility] at if you have any concerns or questions about your operation or recovery. The doctor or his nurse will return your call promptly. C. You must take antibiotics before dental work, bladder, bowel or other surgery. Your doctor will provide you with a permanent care to carry describing this precaution. IMPORTANT: * REMEMBER TO TAKE ASPIRIN, 81 MG, TWICE DAILY FOR 4 WEEKS UNLESS OTHERWISE DIRECTED. THIS IS YOUR BLOOD THINNER. * HIGH RISK PATIENTS MAY BE PRESCRIBED A STRONGER BLOOD THINNER. THIS WILL BE PROVIDED AT DISCHARGE. * CALL IF INCREASED PAIN, REDNESS, DRAINAGE OR FEVER GREATER THAT 101. * WEAR NAYAN HOSE 20 HOURS PER DAY FOR 2 WEEKS. * This is a large suction dressing covering your incision. This will help pull any excess drainage from the wound and allow your incision to heal properly. You may shower with this if you can keep the unit outside of the shower. If any bleeding or leakage is noted please call your doctor's office. This will remain on your incision for 7 days and then should be removed. This can be done yourself or by the home nursing staff if applicable. The entire unit is disposable once removed. Once removed, keep incision clean and dry. If redness or drainage is noted, please call your surgeon. FOLLOW UP VISIT: If appointment is not already scheduled: Please call [facility] to make a follow-up appointment for 2 weeks after your surgery at . Pending Studies at Discharge: No Stand-Alone Forms: My [facility] Skilled Items Patient informed of condition?: Yes DNR: No Discharge Level of Care: Skilled Communicable Disease: No Discharge Prognosis: Improving Lines: None Urinary Catheter: No Medications and DC Order Prescriptions: New oxycodone 5 mg tablet 5 mg PO Q4H MDD 6 PRN (Reason: pain) Qty: 30 RF: 0 celecoxib [Celebrex] 200 mg Capsule 200 mg PO BID Qty: 60 RF: 0 aspirin [Ecotrin Low Strength] 81 mg Tablet,Delayed Release (Dr/Ec) 81 mg PO BID Qty: 60 RF: 0 acetaminophen [Tylenol Extra Strength] 500 mg Tablet 1,000 mg PO Q8 Qty: 60 RF: 0 Continued lorazepam 1 mg Tablet 0.5 mg PO UD PRN (Reason: Anxiety) RF: 0 metoprolol tartrate 25 mg Tablet 25 mg PO QAM RF: 0 pantoprazole 40 mg Tablet,Delayed Release (Dr/Ec) 40 mg PO QAM RF: 0 polyethylene glycol 3350 17 gram Powder In Packet 1 dose PO BID RF: 0 calcium carbonate [Calcium 600] 600 mg calcium (1,500 mg) Tablet 600 mg PO DAILY RF: 0 Premarin 0.625 mg/gram Cream 0.625 applic vaginal PRN (Reason: Itching) RF: 0 cholecalciferol (vitamin D3) [Vitamin D3] 2,000 unit Tablet 2,000 unit PO DAILY RF: 0 Discontinued tramadol 50 mg Tablet 50 mg PO UD PRN (Reason: Pain) RF: 0 acetaminophen [Tylenol Extra Strength] 500 mg Tablet 1,000 mg PO Q6H PRN (Reason: Pain) RF: 0 Discharge Orders: Discharge Order (Routine); Ordered 05/17/19 Ordered By: Julio Martinez Admission Data Admit Date/Time: 05/15/19 11:41 Attending Provider: Feliciano Pascual Admit Provider: Feliciano Pascual Primary Care Provider: Rommel Lyons Other Interventions: Discharge Summary Assessment (RN) Last Done: 05/17/19 12:56 DC Date/Time DO NOT enter until pt leaves facility: 05/17/19 13:51
== END 2019-05-17 13:51 | DRG 470 ==
LOC: ASU 07:26 → 3E 11:41